=== PATIENT | female | born 1985 | race Caucasian/White ===

== ENCOUNTER 2017-08-07 11:30 | Emergency (ER) | payer OTHER ==
[2017-08-07 12:26] LABS: ADD UMIC YES; UR ASCORBIC ACID 20 mg/dL (NEGATIVE); UR BACTERIA FEW /HPF (NONE SEEN); UR BILIRUBIN (Dip) NEGATIVE (NEGATIVE); UR BLOOD (Dip) NEGATIVE (NEGATIVE); UR CALCIUM OXALATE CRYSTAL MANY /HPF (NONE SEEN); UR CLARITY CLOUDY (CLEAR); UR COLOR YELLOW (YELLOW); UR GLUCOSE (Dip) 1+ mg/dL (NEGATIVE); UR KETONES (Dip) TRACE mg/dL (NEGATIVE); UR LEUKOCYTE ESTERASE (Dip) TRACE Leu/ul (NEGATIVE); UR MUCUS FEW /HPF (NONE SEEN); UR NITRITE (Dip) NEGATIVE (NEGATIVE); UR RBC 3 /HPF (0-5); UR SPECIFIC GRAVITY (Dip) 1.028 (1.003-1.030); UR SQUAMOUS EPITHELIAL CELL FEW /HPF (FEW); UR TOTAL PROTEIN (Dip) 2+ mg/dl (NEGATIVE); UR UROBILINOGEN (Dip) NEGATIVE (NEGATIVE); UR WBC 11 /HPF (0-5)
[2017-08-07] MEDS: SOD CHLORIDE 0.9% 1,000 ML IV (12:26)
[2017-08-07] MEDS: morphine 4 MG/ML VIAL IV (12:26)
[2017-08-07] MEDS: ONDANSETRON 4 MG INJ IV (12:26)
[2017-08-07 12:39] LABS: ADD MAN DIFF? NO
[2017-08-07 12:41] LABS: WHITE BLOOD COUNT 12.5 10^3/ul (4.8-10.8)
[2017-08-07 12:41] LABS: BASOPHIL # 0.1 10^3/ul (0.0-0.1); BASOPHILS % 0.4 % (0.0-2.0); EOSINOPHILS # 0.1 10^3/ul (0.0-0.5); EOSINOPHILS % 0.6 % (0.0-7.0); HEMATOCRIT 36.5 % (37.0-47.0); HEMOGLOBIN 11.2 g/dl (12.0-16.0); LYMPHOCYTES # 1.2 10^3/ul (0.8-2.9); LYMPHOCYTES % 9.5 % (15.0-51.0); MEAN CORPUSCULAR HEMOGLOBIN 22.4 pg (29.0-33.0); MEAN CORPUSCULAR HGB CONC 30.7 g/dl (32.0-37.0); MEAN PLATELET VOLUME 9.7 fl (7.4-10.4); MONOCYTE # 0.6 10^3/ul (0.3-0.9); NEUTROPHIL # 10.5 10^3/ul (1.6-7.5); PLATELET COUNT 430 10^3/UL (140-415); RED CELL DISTRIBUTION WIDTH 15.8 % (11.5-14.5)
[2017-08-07 12:58] LABS: ALANINE AMINOTRANSFERASE 46 IU/L (13-69); ALBUMIN 4.8 g/dl (3.3-4.9); ALBUMIN/GLOBULIN RATIO 0.97; ALKALINE PHOSPHATASE 114 IU/L (42-121); ANION GAP 20 (8-16); ASPARTATE AMINO TRANSFERASE 27 IU/L (15-46); BILIRUBIN,INDIRECT 0.3 mg/dl (0-1.1); BILIRUBIN,TOTAL 0.3 mg/dl (0.2-1.3); BLOOD UREA NITROGEN 14 mg/dl (7-20); CALCIUM 9.3 mg/dl (8.4-10.2); CARBON DIOXIDE 23 mmol/L (21-31); CHLORIDE 106 mmol/L (97-110); CREATININE 0.68 mg/dl (0.44-1.00); GLUCOSE 140 mg/dl (70-220); LIPASE 127 U/L (23-300); POTASSIUM 4.2 mmol/L (3.5-5.1); SODIUM 145 mmol/L (135-144); TOTAL PROTEIN 9.7 g/dl (6.1-8.1)
[2017-08-07] MEDS: DICYCLOMINE 20 MG INJ IM (14:19)
== END 2017-08-07 16:04 | disposition home or self-care (01) ==
LOC: FTE 11:30
DX: R10.84 Generalized abdominal pain (principal); R11.10 Vomiting, unspecified; F17.210 Nicotine dependence, cigarettes, uncomplicated
CPT/HCPCS: 36415; 74176; 80053; 81001; 83690; 84703; 85025; 96372; 96374; 96375; 99285-25

== ENCOUNTER 2018-08-20 05:27 | Inpatient (IN) | payer OTHER ==
[2018-08-20] MEDS: VANCOMYCIN 1 GM 250 ML IVPB (06:09)
[2018-08-20] MEDS ORDERED: LACTATED RINGER'S 1,000 ML IV ×2 (06:30)
[2018-08-20] MEDS ORDERED: GELATIN SIZE 100 SPONGE (06:58)
[2018-08-20] MEDS ORDERED: THROMBIN 5000 UNIT VIAL (06:58)
[2018-08-20] MEDS ORDERED: MIDAZOLAM 1 MG/ML 2 ML INJ (07:12)
[2018-08-20] MEDS ORDERED: PROPOFOL 20 ML (07:12)
[2018-08-20] MEDS ORDERED: ROCURONIUM 50 MG INJ (07:12)
[2018-08-20] MEDS ORDERED: FAMOTIDINE 20 MG INJ (07:36)
[2018-08-20] MEDS ORDERED: DEXAMETHASONE 4 MG/ML 5 ML INJ (07:36)
[2018-08-20] MEDS ORDERED: ONDANSETRON 4 MG INJ (07:36)
[2018-08-20] MEDS: BUPIVACAINE 0.25% (MPF) 30 ML INJ (08:08)
[2018-08-20] MEDS: POLYMYXIN/BACITRACIN 1L IRRIG (08:09)
[2018-08-20] MEDS ORDERED: SUGAMMADEX SODIUM 200 MG/2 ML VIAL IV (08:46)
[2018-08-20] MEDS ORDERED: NALOXONE (0.4 MG/ML) INJ IV (09:30)
[2018-08-20] MEDS ORDERED: PROCHLORPERAZINE 10 MG TAB PO (09:30)
[2018-08-20] MEDS ORDERED: CEPASTAT LOZENGE MT (09:30)
[2018-08-20] MEDS ORDERED: TRIMETHOBENZAMIDE 100 MG/ML VIAL IM (09:30)
[2018-08-20] MEDS ORDERED: HYDROCODONE/APAP (5/325) TAB PO ×2 (09:30)
[2018-08-20] MEDS ORDERED: DIAZEPAM 5 MG TAB PO (09:30)
[2018-08-20] MEDS ORDERED: DIPHENHYDRAMINE 50 MG CAP PO (09:30)
[2018-08-20] MEDS ORDERED: ZOLPIDEM 5 MG TAB PO (09:30)
[2018-08-20] MEDS ORDERED: DIAZEPAM 5 MG/ML SYG IM (09:30)
[2018-08-20] MEDS ORDERED: AL HYDROX/MG HYDROX/SIMETH 30 ML CUP PO (09:30)
[2018-08-20] MEDS ORDERED: NACL 0.9% 3 ML SYG IV (09:30)
[2018-08-20] MEDS ORDERED: ACETAMINOPHEN 325 MG TAB PO (09:30)
[2018-08-20] MEDS ORDERED: HYDROmorphONE 1 MG/5 ML IV SYRINGE IV (09:30)
[2018-08-20] MEDS ORDERED: BETHANECHOL 25 MG TAB PO (09:30)
[2018-08-20] MEDS: HYDROmorphONE 1 MG/5 ML IV SYRINGE IV ×4 (09:35→09:57)
[2018-08-20] MEDS: HYDROmorphONE 0.2 MG/ML PCA IV (10:22)
[2018-08-20] MEDS: SOD CHLORIDE 0.45% 1,000 ML IV ×2 (10:59→22:01)
[2018-08-20] MEDS ORDERED: LIDOCAINE 2% (SDV) 5 ML INJ IV (14:16)
[2018-08-20] MEDS ORDERED: SUCCINYLCHOLINE CHLORIDE 100 MG/5 ML SYG IV (14:16)
[2018-08-20] MEDS: ONDANSETRON 4 MG INJ IV ×2 (14:42→21:45)
[2018-08-20] MEDS: VANCOMYCIN 1 GM (PMX) 250 ML IVPB (18:00)
[2018-08-20] MEDS: RANITIDINE 150 MG TAB PO (20:56)
[2018-08-21] MEDS: LEVOTHYROXINE 100 MCG TAB PO (05:42)
[2018-08-21] MEDS: VANCOMYCIN 1 GM (PMX) 250 ML IVPB (05:42)
[2018-08-21 06:01] LABS: HEMATOCRIT 32.2 % (37.0-47.0); HEMOGLOBIN 10.3 g/dl (12.0-16.0)
[2018-08-21 06:15] LABS: ANION GAP 8 (5-13); BLOOD UREA NITROGEN 8 mg/dl (7-20); CALCIUM 8.9 mg/dl (8.4-10.2); CARBON DIOXIDE 26 mmol/L (21-31); CHLORIDE 104 mmol/L (97-110); CREATININE 0.66 mg/dl (0.44-1.00); Estimated GFR > 60 mL/min (>60); GLUCOSE 136 mg/dl (70-220); POTASSIUM 3.8 mmol/L (3.5-5.1); SODIUM 138 mmol/L (135-144)
[2018-08-21] MEDS ORDERED: BETHANECHOL 25 MG TAB PO (08:00)
[2018-08-21] MEDS: RANITIDINE 150 MG TAB PO (08:45)
[2018-08-21] MEDS: DOCUSATE SODIUM 100 MG CAP PO (08:45)
[2018-08-21] MEDS: FERROUS SULFATE (EC) 325 MG TAB PO (08:45)
[2018-08-21] MEDS: ASCORBIC ACID 500 MG TAB PO (08:46)
[2018-08-21] MEDS: SOD CHLORIDE 0.45% 1,000 ML IV (08:46)
[2018-08-21] MEDS ORDERED: metFORMIN 500 MG TAB PO (17:25)
== END 2018-08-21 14:20 | disposition home or self-care (01) | DRG 520 ==
LOC: REC 05:27 → MS1 10:40
PROVIDERS: Orthopaedic Surgery
PROC: 0SB20ZZ Excision of Lumbar Vertebral Disc, Open Approach (ICD-10-PCS; principal; 2018-08-20 07:00)
DX: M51.16 Intervertebral disc disorders with radiculopathy, lumbar region (principal); R11.2 Nausea with vomiting, unspecified; E11.9 Type 2 diabetes mellitus without complications; E03.9 Hypothyroidism, unspecified
CPT/HCPCS: 72020; 80048; 82962; 85014; 85018; 86850; 86900; 86901; 86920; 88304; 97110; 97116; 97161; 97530